=== PATIENT | male | born 1935 | race African-American/Black ===

== ENCOUNTER 2017-10-10 17:48 | Inpatient (IN) | payer OTHER, BC ==
[~2017-10-10] VITALS: Ht 182.9 cm; Wt 120.7 kg
--- NOTE | ~2017-10-10 | 2DMMODE ---
[facility] [address] [place] [address] 2 D/M-MODE ECHOCARDIOGRAM Name: SAL ARRIAGA Room #: 405-P [facility] IN ..#: [id number] Admission: 10/10/17 Attend Phys: Peter Bauman, Discharge: Date of : 31 Date of Service: 10/11/17 1001 Report #: [id number] THIS REPORT FOR: //name// APPROVED REPORT Study performed: 10/11/2017 08:54:43 EXAM: Comprehensive 2D, Doppler, and color-flow Echocardiogram Patient Location: Bedside Room #: 405 Status: routine BSA: 2.41 HR: 105 bpm BP: 125/80 mmHg Other Information Study Quality: Adequate Indications Hypertension/HDD ICD 2D Dimensions RVDd: 41.86 mm LVEF(%): 24.01 (>50%) IVSd: 9.53 (7-11mm) LVOT Diam: 22.61 (18-24mm) LVDd: 56.42 mm PWd: 11.46 (7-11mm) Ascending Ao: 34.93 (22-36mm) LVDs: 50.10 (25-40mm) Aortic Root: 34.75 mm IVC: 31.00 mm Herman's LVEF: 24.01 % Volumes Left Atrial Volume (Systole) Single Plane 4CH: 109.71 mL Single Plane 2CH: 107.60 mL LA ESV Index: 49.00 mL/m2 Aortic Valve AoV Peak Shaq.: 1.16 m/s AO Peak Gr.: 5.41 mmHg LVOT Max P.39 mmHg LVOT Max V: 0.92 m/s ANDREY Vmax: 3.18 cm2 Pulmonary Valve PV Peak Shaq.: 0.66 m/s PV Peak Gr.: 1.73 mmHg [facility] [place] [address] 2 D/M-MODE ECHOCARDIOGRAM Name: SAL ARRIAGA Room #: 405-P ADM IN M.R.#: [id number] Admission: 10/10/17 Attend Phys: Peter Bauman, Discharge: Date of : 31 Date of Service: 10/11/17 1001 Report #: [id number] Tricuspid Valve TR Peak Shaq.: 3.10 m/s TR Peak Gr.: 38.53 mmHg PA Pressure: 49.00 mmHg Left Ventricle Left ventricle is at the upper limits of normal. There is normal left ventricular wall thickness. Left ventricular ejection fraction is severely decreased. LVEF is 30%. This study is not technically sufficient to allow evaluation of the LV diastolic function. Right Ventricle Right ventricle is at the upper limits of normal. Right ventricle is mildly hypokinetic. Device lead is present in the right ventricle. Atria Left atrium is severely dilated. Right atrium is dilated. Device lead is present in the right atrium. Aortic Valve The aortic valve is normal in structure. Aortic valve is calcified. Trace aortic regurgitation. There is no aortic valvular stenosis. Mitral Valve The mitral valve is normal in structure. Moderate mitral regurgitation. No evidence of mitral valve stenosis. Tricuspid Valve The tricuspid valve is normal in structure. There is moderate tricuspid regurgitation. Estimated PAP 49 mmHg There is moderate pulmonary hypertension. Pulmonic Valve The pulmonary valve is normal in structure. Trace pulmonic regurgitation. Great Vessels The aortic root is normal in size. IVC is dilated and collapses <50% with inspiration. Pericardium There is no pericardial effusion. <Conclusion> Left ventricle is at the upper limits of normal. [facility] [address] [place] [address] 2 D/M-MODE ECHOCARDIOGRAM Name: SAL ARRIAGA Room #: 405-P [facility] IN .R.#: [id number] Admission: 10/10/17 Attend Phys: Peter Bauman, Discharge: Date of : 31 Date of Service: 10/11/17 1001 Report #: [id number] Left ventricular ejection fraction is severely decreased. Right ventricle is mildly hypokinetic. Left atrium is severely dilated. Right atrium is dilated. Device lead is present in the right atrium. Device lead is present in the right ventricle. Trace aortic regurgitation. Moderate mitral regurgitation. There is moderate tricuspid regurgitation. Estimated PAP 49 mmHg There is no pericardial effusion. <ELECTRONICALLY SIGNED> By: Ladarius Matias MD 10/11/171000 00 00 Ladarius Matias MD /INF
--- NOTE | ~2017-10-10 | HC ---
[facility] [address] [place] [address] CONSULTATION Name: SAL ARRIAGA JR Room #: 405-P [facility] IN M.R.#: [id number] Admission: 10/10/17 Attend Phys: Peter Bauman DO Discharge: Date of : 33 Report #: [id number] THIS REPORT FOR: //name// CC: [facility] physician/PCP Peter Bauman DATE OF SERVICE: 10/11/2017 HISTORY OF PRESENT ILLNESS: This is an 82-year-old male patient who was evaluated by me to determine any neurological etiology for the patient's altered mental status. The patient is sedated at the moment. He does not provide any history. The family provides history. They indicate that the patient has been losing memory for sometime now. He becomes intermittently confused. He still insisted on driving. Sometime he gets lost, but then he finds his way out because he is mostly in the familiar territory. Today, he was found by police when he was driving, and he had a flat tire. He has been admitted here. Nurses tell me that he is having a lot of trouble with agitation and he is trying to leave. They have given him sedation, and he was sedated when I saw him. REVIEW OF SYSTEMS: Indicates that this patient had trouble with memory. It is not clear if he has sleep apnea or not, but he is set up for that. Record indicates that the mate ship have seen him and thinks he has cardiomyopathy. From history, it looks pretty clear that this patient has dementia. I carried out 14-point review of system with the family, and this was his relevant 14-point review of system. PAST MEDICAL HISTORY: What looks like dementia. FAMILY HISTORY: Negative for congenital dementia. SOCIAL HISTORY: He lives with his and most of the history was taken from the patient's . PHYSICAL EXAMINATION: Very limited. He is sleepy. He will not wake up. When he wakes up, he opens his eyes, but that is all he does. He has no meningeal sign and rest of the examination is not possible in this patient. He is a pretty well-built individual who is obese. I cannot tell about hearing, but the family says his hearing is significantly impaired. His respiratory examination looks stable. He does not appear to be in any respiratory distress. He does not have any thyroid mass. VITAL SIGNS: His blood pressure is 119/80, respirations 16, pulse is 112, temperature is 97.3. LABORATORY DATA: He did have a CT scan of the head, which showed chronic changes, but no acute changes. [address] [address] CONSULTATION Name: SAL ARRIAGA Room #: 405-P [facility] IN .R.#: [id number] Admission: 10/10/17 Attend Phys: Peter Bauman DO Discharge: Date of : 33 Report #: [id number] IMPRESSION: 1. Dementia. It looks like the patient does have significant dementia in the baseline. 2. Probable superimposed encephalopathy. 3. He is set up for sleep apnea and that may have to be worked up as an outpatient. 4. Slightly increased TSH, which is unlikely to be contributing to the patient's symptoms. RECOMMENDATIONS: 1. I will get an EEG. 2. I agree with the psychiatric consult because competency need to be determined and his agitation and hallucination need to be controlled. He is having both of them. 3. There is no indication for intracranial infection to indicate any spinal tap in this patient at this moment, but we will watch him. Discussed the patient with the nurses, and this patient's agitation may become a problem and has to be controlled by a psychiatrist. We will try to get an EEG done in this patient and if he becomes more cooperative, we might do some more workup on him, but we will try to reevaluate him tomorrow and go from there. Thank you very much for this referral. <ELECTRONICALLY SIGNED> By: Giorgio Zamora MD 10/14/17 1145 1701 2150 Giorgio Zamora MD /nt
--- NOTE | ~2017-10-10 | HC ---
[facility] [address] [address] CONSULTATION Name: SAL ARRIAGA Room #: 405-P ADM IN M.R.#: [id number] Admission: 10/10/17 Attend Phys: Peter Bauman DO Discharge: Date of : 33 Report #: [id number] THIS REPORT FOR: //name// CC: [facility] physician/PCP Peter Bauman INDICATION: Pacemaker, elevated BNP. HISTORY OF PRESENT ILLNESS: The patient was brought to [facility] by EMS for apparent dizziness. The details are unavailable. The patient is a poor historian, unable to adequately answer questions. He apparently had dizziness while driving, apparently lives with grandchildren. No other details are available at this time. Presently, he denies any episodes of chest pains, shortness of breath, fever, PND or orthopnea. 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 The plan is to obtain his previous medical records; however, we are unable to contact any of his family members. PAST MEDICAL HISTORY: Hypertension, defibrillator, ?AFib ALLERGIES: No known. MEDICATIONS: ? Norvasc. ?Eliquis. SOCIAL HISTORY: Denies tobacco use. FAMILY HISTORY: Unobtainable. REVIEW OF SYSTEMS: Unobtainable. PHYSICAL EXAMINATION: VITAL SIGNS: Blood pressure is 130/70, heart rate 110 beats per minute. GENERAL APPEARANCE: A well-developed, well-nourished male, in no acute respiratory distress. HEAD AND EYES: Normocephalic. Sclerae are anicteric. ENT: Oral mucosa moist. NECK: Supple, no JVD. LUNGS: Clear to auscultation. CARDIAC: Regular rate and rhythm, S1, S2 positive. ABDOMEN: Soft, nontender. EXTREMITIES: No cyanosis. Bilateral lower extremity edema. ECG reveals a ventricular paced rhythm. LABORATORY VALUES: Sodium is 138, creatinine is 1.9. Troponin is negative. BNP is elevated at 11,864. [facility] [address] [place] [address] CONSULTATION Name: SAL ARRIAGA Room #: [facility] IN .R.#: [id number] Admission: 10/10/17 Attend Phys: Peter Bauman DO Discharge: Date of : 33 Report #: [id number] ASSESSMENT AND PLAN: 1. Confusion, mental status change, unclear how much of this is acute versus chronic. CT of the head did not reveal any acute cerebral process. Recommend neuro evaluation. 2. ?cardiomyopathy, the preliminary echo shows left ventricular dysfunction. The BNP is elevated, maybe chronically in view of the history of cardiomyopathy. He is not in any congestive heart failure at this time. Slightly tachycardic, may be related to possible urinary tract infection. We will add a low dose carvedilol to his medical regimen. Await for official results of the echocardiogram. We will also need to obtain his previous medical records. 3. Defibrillator, will undergo device interrogation. 4. Urinary tract infection, antibiotics and check urine cultures. 5. Acute kidney injury, elevated creatinine level. Continue to follow the creatinine. 6. Hypertension, hold Norvasc and start Coreg for now in view of cardiomyopathy. <ELECTRONICALLY SIGNED> By: Ladarius Matias MD 10/12/17 1032 0922 1002 Ladarius Matias MD /nt
--- NOTE | ~2017-10-10 | EKG ---
[place] [address] [address] [place] [address] ELECTROCARDIOGRAM REPORT Name: SAL ARRIAGA JR Room #: 405-P ADM IN M.R.#: [id number] Admission: 10/10/17 Attend Phys: Peter Bauman DO Discharge: Date of : 33 Report #: [id number] THIS REPORT FOR: //name// [facility] ED Test Date: 2017-10-10 Test Time: 18:06:39 Pat Name: SAL ARRIAGA Department: Room: 405 Gender: M Drug Discovery Informatics Specialist: MZOOK : 1935 Requested By: Abisai Young Order Number: [id number] MD: Presley Luis Measurements Intervals [place] Rate: 111 P: 0 NC: 96 QRS: -64 QRSD: 208 T: 99 QT: 442 QTc: 601 Interpretive Statements Ventricular-paced complexes No further rhythm analysis attempted due to paced rhythm No previous ECG available for comparison Electronically Signed On 10-11-2017 8:02:28 MOTOR ELECTRICIAN by Presley Luis [email or web address] <ELECTRONICALLY SIGNED> By: Presley Luis MD, [facility] 10/11/1702 05 05 Presley Luis MD, FAC /EPI
[2017-10-10 17:50] VITALS: BP 134/86
[2017-10-10] MEDS ORDERED: ELIQUIS2.5 MG PO (18:12)
[2017-10-10] MEDS ORDERED: AMLODIPINE BESY10 MG PO (18:12)
[2017-10-10 18:47] LABS: ABSOLUTE NEUTROPHILS 4.9 thou/uL (1.4-8.2); BASOPHILS 1.2 % (0.0-2.0); EOSINOPHILS 1.5 % (0.0-3.0); HEMOGLOBIN 11.7 gm/dL (14.0-18.0); LYMPHOCYTES 29.2 % (24.0-44.0); MCHC 32.5 g/dL (28.0-37.0); MCV 89.2 fL (80.0-100.0); MONOCYTES 8.2 % (1.0-8.0); PLATELET COUNT 242 thou/uL (150-400); POLYS 59.9 % (36.0-66.0); RBC 4.04 mil/uL (4.50-6.00); RDW 17.6 % (10.5-14.5); WBC 8.2 thou/uL (4.0-11.0)
[2017-10-10 18:50] LABS: ANION GAP 9 mmol/L (7-16); BUN 25 mg/dL (7-18); CALCIUM 9.3 mg/dL (8.5-10.1); CHLORIDE 106 mmol/L (98-107); CO2 23 mmol/L (21-32); CREATININE 1.9 mg/dL (0.7-1.3); GLUCOSE 94 mg/dL (74-106); POTASSIUM 3.8 mmol/L (3.5-5.1); SODIUM 138 mmol/L (136-145)
[2017-10-10 18:59] LABS: ALBUMIN 3.4 g/dL (3.4-5.0); MAGNESIUM 2.1 mg/dL (1.8-2.4); SGOT 25 U/L (15-37); SGPT 24 U/L (30-65); TOTAL PROTEIN 7.5 g/dL (6.4-8.2); TROPONIN-I < 0.04 ng/mL (<0.06)
[2017-10-10 20:13] LABS: URINE BILIRUBIN 1+ (Negative); URINE BLOOD 3+ (Negative); URINE CLARITY SL CLOUDY; URINE COLOR YELLOW; URINE GLUCOSE-RANDOM* NEGATIVE (Negative); URINE KETONES NEGATIVE (Negative); URINE PROTEIN (DIPSTICK) 1+ (Negative); URINE SPECIFIC GRAVITY >= 1.030 (1.005-1.035)
[2017-10-10 20:14] VITALS: BP 132/81
[2017-10-10 20:16] LABS: URINE LEUKOCYTES-REFLEX 1+ (Negative); URINE NITRITE-REFLEX POSITIVE (Negative)
[2017-10-10 20:17] LABS: ICTOTEST (BILI CONFIRMATORY) Positive (Negative)
[2017-10-10 20:23] LABS: BACTERIA-REFLEX >30 Many /HPF (None Seen); CASTS None Seen /LPF (None Seen); CRYSTALS None Seen /LPF (None Seen); SQUAMOUS 0-3 Few /LPF (0-3); URINE WBC-REFLEX 6-15 Few /HPF (0-5)
[2017-10-10 20:24] LABS: RENAL EPITHELIAL CELLS 0-3 Few /LPF (None Seen); URINE RBC >20 Many /HPF (0-2)
[2017-10-10 20:27] LABS: AMP/METHAMP Negative (Negative); BARBITURATES Negative (Negative); BENZODIAZEPINES Negative (Negative); COCAINE Negative (Negative); METHADONE Negative (Negative); OPIATES Negative (Negative); PCP Negative (Negative)
[2017-10-10 20:38] VITALS: BP 132/81
[2017-10-10 21:22] VITALS: BP 103/68
[2017-10-11] VITALS: BP 127/79
[2017-10-11 03:22] LABS: HEMATOCRIT 35.9 % (42.0-52.0); HEMOGLOBIN 11.5 gm/dL (14.0-18.0); MCH 28.8 pg (26.0-34.0); MCHC 32.1 g/dL (28.0-37.0); MCV 89.8 fL (80.0-100.0); RDW 17.3 % (10.5-14.5); WBC 8.3 thou/uL (4.0-11.0)
[2017-10-11 03:32] LABS: CALCIUM 9.1 mg/dL (8.5-10.1); CREATININE 1.8 mg/dL (0.7-1.3); POTASSIUM 3.9 mmol/L (3.5-5.1)
[2017-10-11 04:00] VITALS: BP 125/80
[2017-10-11 04:00] LABS: FOLIC ACID 7.1 ng/mL (8.6-58.9); TSH 4.354 uIU/mL (0.358-3.740)
[2017-10-11 07:36] VITALS: BP 119/80
[2017-10-11 16:38] VITALS: BP 127/95
[2017-10-11 19:33] VITALS: BP 125/80
[2017-10-12 07:50] LABS: HEMATOCRIT 36.2 % (42.0-52.0); HEMOGLOBIN 12.2 gm/dL (14.0-18.0); MCH 29.5 pg (26.0-34.0); MCHC 33.6 g/dL (28.0-37.0); MCV 87.9 fL (80.0-100.0); RBC 4.12 mil/uL (4.50-6.00); RDW 17.5 % (10.5-14.5); WBC 7.9 thou/uL (4.0-11.0)
[2017-10-12 08:13] LABS: INR 1.1
[2017-10-12 08:14] LABS: ALBUMIN 2.9 g/dL (3.4-5.0); CALCIUM 8.8 mg/dL (8.5-10.1); CREATININE 1.4 mg/dL (0.7-1.3); MAGNESIUM 1.8 mg/dL (1.8-2.4); POTASSIUM 3.7 mmol/L (3.5-5.1); TOTAL BILIRUBIN 0.9 mg/dL (<0.1-1.0)
[2017-10-12 09:49] VITALS: BP 137/89
[2017-10-12 12:11] VITALS: BP 105/77
[2017-10-12 16:48] VITALS: BP 109/75
[2017-10-12 20:09] VITALS: BP 96/65
[2017-10-13 04:00] VITALS: BP 129/83
[2017-10-13 06:23] LABS: CALCIUM 8.9 mg/dL (8.5-10.1); CREATININE 1.5 mg/dL (0.7-1.3); POTASSIUM 3.9 mmol/L (3.5-5.1)
[2017-10-13 07:26] VITALS: BP 124/78
[2017-10-13 11:54] VITALS: BP 101/63
[2017-10-13 15:54] VITALS: BP 101/63
[2017-10-13 20:00] VITALS: BP 80/40
[2017-10-14 04:00] VITALS: BP 119/64
[2017-10-14] MEDS ORDERED: CEFUROXIME250 MG PO (09:23)
[2017-10-14] MEDS ORDERED: CARVEDILOL3.125 MG PO (09:24)
[2017-10-14] MEDS ORDERED: COZAAR 25 MG TA25 M1 PO (09:24)
[2017-10-14] MEDS ORDERED: ARICEPT 5 MG TAB5 MG PO (09:24)
[2017-10-14] MEDS ORDERED: OLANZAPINE ODT5 MG PO (09:25)
[2017-10-14 11:00] VITALS: BP 102/56
== END 2017-10-14 13:33 | DRG 70 ==
LOC: ER 17:48 → 4N 19:46 → EROBS 19:46 → 4N 21:03
PROVIDERS: Emergency Medicine; Internal Medicine Cardiovascular Disease; Nurse Practitioner Family; Registered Nurse
DX: G93.41 Metabolic encephalopathy (principal); N17.0 Acute kidney failure with tubular necrosis; N39.0 Urinary tract infection, site not specified; I42.9 Cardiomyopathy, unspecified; I10 Essential (primary) hypertension; F03.90 Unspecified dementia, unspecified severity, without behavioral disturbance, psychotic disturbance, mood disturbance, and anxiety; I48.91 Unspecified atrial fibrillation; Z79.899 Other long term (current) drug therapy; Z95.0 Presence of cardiac pacemaker; Z28.21 Immunization not carried out because of patient refusal
CPT/HCPCS: 10091

== ENCOUNTER 2017-10-26 22:57 | Emergency (ER) | payer OTHER, BC ==
[~2017-10-26] VITALS: Ht 182.9 cm; Wt 108.9 kg
--- NOTE | ~2017-10-26 | EKG ---
[place] [address] [facility] [place] [address] ELECTROCARDIOGRAM REPORT Name: SAL ARRIAGA JR [id number] Admission: 10/26/17 Attend Phys: Discharge: 10/27/17 Date of : 33 Report #: [id number] THIS REPORT FOR: //name// [facility] ED Test Date: 2017-10-26 Test Time: 23:29:16 Pat Name: SAL ARRIAGA Department: Room: Gender: M Converting Operator: ARIANA : 1935 Requested By: Luther Hernadez Order Number: [id number] MD: Presley Luis Measurements Intervals [place] Rate: 73 P: FL: QRS: -15 QRSD: 106 T: -28 QT: 407 QTc: 449 Interpretive Statements Atrial flutter with predominant 3:1 AV block Borderline left axis deviation Nonspecific ST segment abnormality Compared to ECG 10/10/2017 18:06:39 Ventricular pacing is no longer present Electronically Signed On 10-27-2017 8:13:00 DIRECTOR PHARMACOVIGILANCE by Presley Luis [email or web address] <ELECTRONICALLY SIGNED> By: Presley Luis MD, [facility] 10/27/17 0813 2329 2329 Presley Luis MD, [facility] /EPI
[~2017-10-26 22:57] MED LIST: AMLODIPINE BESY10 MG PO; ARICEPT 5 MG TAB5 MG PO; CARVEDILOL3.125 MG PO; CEFUROXIME250 MG PO; COZAAR 25 MG TA25 M1 PO; ELIQUIS2.5 MG PO; OLANZAPINE ODT5 MG PO
[2017-10-26 23:27] LABS: HEMATOCRIT 35.3 % (42.0-52.0); HEMOGLOBIN 11.5 gm/dL (14.0-18.0); MCH 28.8 pg (26.0-34.0); MCHC 32.5 g/dL (28.0-37.0); MCV 88.6 fL (80.0-100.0); RBC 3.99 mil/uL (4.50-6.00); RDW 17.7 % (10.5-14.5); WBC 7.3 thou/uL (4.0-11.0)
[2017-10-26] MEDS ORDERED: ASPIR 8181 M1 PO (23:31)
[2017-10-26] MEDS ORDERED: ARICEPT 5 MG TAB5 MG PO (23:31)
[2017-10-26] MEDS ORDERED: LASIX 20 MG TAB20 MG PO (23:32)
[2017-10-26] MEDS ORDERED: KLOR-CON 1010 MEQ PO (23:32)
[2017-10-26] MEDS ORDERED: VOLTAREN GEL 1100 G2 TOP (23:32)
[2017-10-27 00:18] LABS: ANION GAP 9 mmol/L (7-16); BUN 24 mg/dL (7-18); CALCIUM 8.4 mg/dL (8.5-10.1); CHLORIDE 102 mmol/L (98-107); CO2 26 mmol/L (21-32); CREATININE 1.5 mg/dL (0.7-1.3); GLUCOSE 113 mg/dL (74-106); POTASSIUM 4.8 mmol/L (3.5-5.1); SODIUM 137 mmol/L (136-145)
[2017-10-27 00:26] LABS: ALBUMIN 2.8 g/dL (3.4-5.0); SGOT 30 U/L (15-37); SGPT 31 U/L (30-65); TOTAL BILIRUBIN 0.4 mg/dL (<0.1-1.0); TOTAL PROTEIN 6.6 g/dL (6.4-8.2); TROPONIN-I < 0.04 ng/mL (<0.06)
[2017-10-27 01:09] VITALS: BP 133/72
== END 2017-10-27 01:10 | disposition home or self-care (01) ==
LOC: ER 22:57
PROVIDERS: Emergency Medicine
DX: S22.32XA Fracture of one rib, left side, initial encounter for closed fracture (principal); I10 Essential (primary) hypertension; I48.91 Unspecified atrial fibrillation; W18.39XA Other fall on same level, initial encounter; Y93.89 Activity, other specified; Y92.89 Other specified places as the place of occurrence of the external cause; Y99.8 Other external cause status

== ENCOUNTER 2018-11-07 19:34 | Inpatient (IN) | payer OTHER, BC ==
[~2018-11-07] VITALS: Ht 182.9 cm; Wt 111.1 kg
[~2018-11-07 19:34] MED LIST changes: +ASPIR 8181 M1 PO; +KLOR-CON 1010 MEQ PO; +LASIX 20 MG TAB20 MG PO; +VOLTAREN GEL 1100 G2 TOP
[2018-11-07 19:35] VITALS: BP 204/126
[2018-11-07 20:48] LABS: ABSOLUTE NEUTROPHILS 5.2 thou/uL (1.4-8.2); BASOPHILS 0.3 % (0.0-2.0); HEMATOCRIT 41.7 % (42.0-52.0); HEMOGLOBIN 14.2 gm/dL (14.0-18.0); MCH 31.2 pg (26.0-34.0); MCHC 34.1 g/dL (28.0-37.0); MCV 91.5 fL (80.0-100.0); MONOCYTES 6.3 % (1.0-8.0); PLATELET COUNT 207 thou/uL (150-400); POLYS 73.4 % (36.0-66.0); RBC 4.55 mil/uL (4.50-6.00); WBC 7.1 thou/uL (4.0-11.0)
[2018-11-07 20:53] LABS: ANION GAP 7 mmol/L (7-16); BUN 17 mg/dL (7-18); CALCIUM 9.3 mg/dL (8.5-10.1); CHLORIDE 101 mmol/L (98-107); CO2 29 mmol/L (21-32); CREATININE 1.5 mg/dL (0.7-1.3); GLUCOSE 120 mg/dL (74-106); POTASSIUM 4.3 mmol/L (3.5-5.1); SODIUM 137 mmol/L (136-145)
[2018-11-07 21:02] LABS: TROPONIN-I <0.06 ng/mL (<0.06)
[2018-11-07 21:25] LABS: URINE BILIRUBIN NEGATIVE (Negative); URINE BLOOD NEGATIVE (Negative); URINE CLARITY CLEAR; URINE COLOR YELLOW; URINE GLUCOSE-RANDOM* NEGATIVE (Negative); URINE KETONES NEGATIVE (Negative); URINE LEUKOCYTES NEGATIVE (Negative); URINE NITRITE NEGATIVE (Negative); URINE PROTEIN (DIPSTICK) NEGATIVE (Negative); URINE SPECIFIC GRAVITY 1.015 (1.005-1.035); URINE UROBILINOGEN 0.2 E.U./dl (0.2-1.0)
[2018-11-07 22:41] VITALS: BP 190/92
[2018-11-07 23:21] VITALS: BP 132/71
[2018-11-07 23:45] VITALS: BP 149/88
--- NOTE | 2018-11-08 03:12 | NUR ---
ADMITTED FROM ER A 83/M CC HIGH BLOOD PRESSURE OFF CARDENE DRIP, & HEADACHE WHICH HAS BEEN PERSISTENT FOR A WEEK. 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 PT COMPLIANT WITH HIS BP MEDS, AND TOOK HIS MEDS TODAY. ADMISSION CARE DONE. ASSESSMENT DOCUMENTED. DEIES ANY PAIN. COMPLAINT OF BEING HUNGRY, HADNT EATEN SINCE 12 NOON. APPLE JUICE AND DENIS GIVEN. VOIDS IN THE URINAL. SCD ON. FF UP POC.
[2018-11-08 04:50] LABS: ALBUMIN 3.2 g/dL (3.4-5.0); CREATININE 1.1 mg/dL (0.7-1.3); PHOSPHORUS 3.2 mg/dL (2.5-4.9)
[2018-11-08 04:56] LABS: POTASSIUM 3.8 mmol/L (3.5-5.1)
[2018-11-08 05:14] VITALS: BP 15/94; BP 155/94
--- NOTE | 2018-11-08 06:02 | NUR ---
05:58>CALLED TELEVISION DIRECTOR NELI BURGOS. RELAYED RESULT: NA - 137, K-3.8. SHE ORDERED TO START NSS AT 80 ML/HR. READBACK DONE AND ORDERS ENTERED.
[2018-11-08 07:10] VITALS: BP 156/98
--- NOTE | 2018-11-08 09:07 | EKG ---
[address] [address] ELECTROCARDIOGRAM REPORT Name: SAL ARRIAGA JR Room #: 202-P ADM IN M.R.#: [id number] ������������������ Admission: 11/07/18 ������������������ Attend Phys: Killian Hu Discharge: ������������������ Date of : 33 Report #: [id number] ����������������������������������������������������������������� [id number] THIS REPORT FOR: //name// [facility] ED Test Date: 2018-11-07 Test Time: 20:22:57 Pat Name: SAL ARRIAGA Department: Room: 202 Gender: M Shell Shop Supervisor: ROLY : 1935 Requested By: Ayesha Perez Order Number: [id number] MD: Presley Luis Measurements Intervals [place] Rate: 104 P: PA: QRS: -53 QRSD: 159 T: 32 QT: 401 QTc: 528 Interpretive Statements Wide-complex tachycardia RBBB and LAFB Left ventricular hypertrophy Compared to ECG 10/26/2017 23:29:16 Right bundle branch block and left anterior fascicular block are now present wide-complex tachycardia is now present Electronically Signed On 11-08-2018 9:07:46 CDT by Presley Luis [email or web address] ��������������������������������������������� <ELECTRONICALLY SIGNED> ���������������������������������������� By: Presley Luis MD, [facility] ��������������������������������������������� 11/08/18906 21 21 Presley Luis MD, [facility] /EPI
[2018-11-08 11:05] VITALS: BP 132/102
[2018-11-08] MEDS ORDERED: CARVEDILOL12.5 MG PO (15:59)
[2018-11-08] MEDS ORDERED: COZAAR 25 MG TA25 M1 PO (15:59)
[2018-11-08 16:02] VITALS: BP 149/85
[2018-11-08 16:06] VITALS: BP 149/85
--- NOTE | 2018-11-08 16:16 | NUR ---
PT CARE ASSUMED APPROX 0700. PT ALERT AND ORIENTED X4 BUT HAS ALZHEIMERS AND GETS CONFUSED AND UNCOOPERATIVE. FAMILY REPORTS THIS BASELINE. DENIES PAIN AND SOA. BP ELEVATED THIS AM. MEDS ADJUSTED PER DR ONOFRE. BP WNL AT THIS TIME. DR ONOFRE TO DISCHARGE AT THIS TIME. VSS. PT'S GRANDDAUGHTER PRESENT FOR DISCHARGE EDUCATION. SHE DENIES QUESTIONS OR CONCERNS REGARDING DISCHARGE MEDS, SCRIPTS, DIET, ACTIVITY LEVEL AND GENERAL POST HOSPITAL CARES. PT REMOVED IV AND TOOK HIMSELF OFF TELE EARLIER IN THE SHIFT. HOSPITAL STAFF TO ESCORT PT OUT TIMELY.
--- NOTE | 2018-11-08 17:07 | NUR ---
PT ADMITTED RELATED TO HYPERTENSIVE EMERGENCY. CM REVIEWED CHART AND SPOKE WITH CARE TEAM. NURSE INDICATED THAT PT IS REFUSING CARES AND THAT PHYSICIAN INDICATED PT IS MEDICALLY STAB;E TO DISCHARGE. CM CONTACTED SPOUSE AND SON AT NUMBERS LISTED PT'S SPOUSE'S NUMBER IS NOT IN SERVICE. LEFT VM FOR SON. IN THE MEANTIME PT'S GRADDAUGHTER CAME TO PICK PT UP. PT DISCHARGED HOME WITH FAMILY WITH NO NEEDS. CASE CLOSED.
[2018-11-08 23:06] LABS: HBsAG-EMPLOYEE EXPOSURE Negative (Negative); HCV AB-EMPLOYEE EXPOSURE <0.1 (0.0-0.9)
[2018-11-08 23:06] LABS: HIV ANTIBODY Non Reactive (Non Reactive)
[2018-11-09 16:11] LABS: CD3 % 75.1 % (57.5-86.2); CD4 % 42.7 % (30.8-58.5); CD4:CD8 1.39 (0.92-3.72); CD8 % 30.8 % (12.0-35.5)
--- NOTE | 2018-11-10 20:34 | HC ---
[facility] [place] [address] CONSULTATION Name: SAL ARRIAGA Room #: 202-P [facility] IN M.R.#: [id number] Admission: 11/07/18 ������������������ Attend Phys: Killian Hu Discharge: 11/08/18 ������������������ Date of : 31 Report #: [id number] THIS REPORT FOR: //name// CC: Killian Marques DATE OF SERVICE: 11/08/2018 TYPE OF REPORT: Infectious diseases consultation. REASON FOR CONSULTATION: I was asked to evaluate concerning positive HIV antibody test. HISTORY OF PRESENT ILLNESS: The patient is an 83-year old with underlying history of dementia and very hard of hearing. He has hypertension, atrial fibrillation and a permanent pacemaker defibrillator. He presents on 11/07/2018 with hypertension and headaches. He was treated with hydralazine and Cardene drip. He was seen by Internal Medicine and geriatrics. Blood pressure came under control. The patient was unable to give any meaningful history. During his evaluation, one of the employees suffered a needle stick from his blood sample. During the workup, he had a rapid HIV test, which was positive. The HIV P24 antigen was negative. Confirmation studies have yet to be reported. I do not have any prior history of HIV. ALLERGIES: None known. MEDICATIONS: As noted on his MAR, which were reviewed. PAST MEDICAL HISTORY: Hypertension, permanent pacemaker, defibrillator and atrial fibrillation. FAMILY HISTORY: Noncontributory. SOCIAL HISTORY: Nonsmoker. No significant alcohol intake. REVIEW OF SYSTEMS: Ten-point review of systems was unable to be completed due to patient's inability to give a reasonable history. PHYSICAL EXAMINATION: GENERAL: The patient was wandering the halls. He would not stay in his room. He was alert and reasonably cooperative, although after redirection he would just get up again and said he wanted to get some fresh air. He was ambulatory. HEENT: Without scleral icterus. Mouth was without lesion. NECK: Supple. LUNGS: Clear. HEART: Regular. [facility] [address] [place] [address] CONSULTATION Name: SAL ARRIAGA JR Room #: 202-[facility] IN ..#: [id number] Admission: 11/07/18 ������������������ Attend Phys: Killian Hu Discharge: 11/08/18 ������������������ Date of : 33 Report #: [id number] ABDOMEN: Soft. LABORATORY STUDIES: HIV screening as noted above. Creatinine 1.1. Urinalysis negative. Hemoglobin 14.2; WBC 7.1 and platelet count 207,000. RADIOLOGICAL DATA: CT of the head negative. Chest x-ray clear. IMPRESSION: An 83-year old with underlying dementia, atrial fibrillation and hypertensive urgency. Positive human immunodeficiency virus antibody screen. This is yet to be confirmed. Do not have any history to suggest previous positive. RECOMMENDATIONS: We will obtain followup confirmation study. Check HIV RNA and CD4 count. It is noted the patient is having anticipated discharge later on this afternoon. He will need followup with his primary care following these results. ��������������������������������������������� <ELECTRONICALLY SIGNED> ���������������������������������������� By: Abisai Girard MD ��������������������������������������������� 11/10/18 2034 1536 2311 Abisai Girard MD /nt
== END 2018-11-08 16:23 | disposition home or self-care (01) | DRG 304 ==
LOC: ER 19:34 → EROBS 22:18 → 2N 22:18
PROVIDERS: Nurse Practitioner Family; Specialist; Student in an Organized Health Care Education/Training Program; ADMIT Hospitalist
DX: I16.0 Hypertensive urgency (principal); N17.0 Acute kidney failure with tubular necrosis; E87.1 Hypo-osmolality and hyponatremia; I48.91 Unspecified atrial fibrillation; M19.90 Unspecified osteoarthritis, unspecified site; F03.90 Unspecified dementia, unspecified severity, without behavioral disturbance, psychotic disturbance, mood disturbance, and anxiety; I10 Essential (primary) hypertension; Z79.82 Long term (current) use of aspirin; Z79.899 Other long term (current) drug therapy; Z95.0 Presence of cardiac pacemaker
CPT/HCPCS: 10081